=== PATIENT | male | born 1995 | race Caucasian/White ===

== ENCOUNTER → 2016-05-04 | Outpatient (CLI) | payer BC ==
[2016-05-04 09:39] LABS: BASO # 0.2 K/mm3 (0.0-0.2); BASO % 1.8 % (0.0-1.0); EOS # 0.1 K/mm3 (0.0-0.50); EOS % 0.7 % (0.0-3.0); LARGE UNSTAINED CELL # 0.2 K/mm3 (0.0-0.4); LARGE UNSTAINED CELL % 1.4 % (0.0-4.0); LYMPH # 1.5 K/mm3 (1.5-6.5); LYMPH % 10.9 % (24.0-44.0); MEAN CORPUSCULAR HGB CONC 34.9 g/dl (32.0-36.5); MEAN CORPUSCULAR VOLUME 82.9 fl (80.0-96.0); MONO # 0.8 K/mm3 (0.0-0.8); MONO % 6.3 % (0.0-5.0); NEUTROPHILS # 9.6 K/mm3 (1.8-7.7); NEUTROPHILS % 78.9 % (36.0-66.0); PLATELET COUNT, AUTOMATED 303 k/mm3 (150-450); RED CELL DISTRIBUTION WIDTH 12.8 % (11.5-14.5); WHITE BLOOD COUNT 12.1 K/mm3 (4.0-10.0)
[2016-05-04 10:12] LABS: ALBUMIN 4.5 GM/DL (3.2-5.2); ALBUMIN/GLOBULIN RATIO 1.41 (1.00-1.93); ALKALINE PHOSPHATASE 105 U/L (45-117); ALT/SGPT 48 U/L (12-78); ANION GAP 14 MEQ/L (8-16); AST/SGOT 22 U/L (15-37); BILIRUBIN,TOTAL 1.3 MG/DL (0.2-1.0); BLOOD UREA NITROGEN 16 MG/DL (7-18); CALCIUM LEVEL 9.6 MG/DL (8.5-10.1); CARBON DIOXIDE LEVEL 23 MEQ/L (21-32); CHLORIDE LEVEL 100 MEQ/L (98-107); CREATININE FOR GFR 1.08 MG/DL (0.70-1.30); GLOMERULAR FILTRATION RATE > 60.0 (>60); GLUCOSE, FASTING 107 MG/DL (70-105); POTASSIUM SERUM 3.5 MEQ/L (3.5-5.1); SODIUM LEVEL 137 MEQ/L (136-145); TOTAL PROTEIN 7.7 GM/DL (6.4-8.2)
== END ==
LOC: M WUC 08:47
PROVIDERS: ATTEND Physician Assistant
DX: K29.00 Acute gastritis without bleeding (principal)

== ENCOUNTER 2016-05-09 09:27 | Emergency (ER) | payer BC ==
[2016-05-09] MEDS ORDERED: KETOROLAC 30 MG/ML VIAL (J1885) As Ordered ONE (10:24)
[2016-05-09] MEDS ORDERED: ONDANSETRON 4MG/2ML VIAL (J2405) As Ordered ONE (10:24)
[2016-05-09 10:46] LABS: BASO # 0.1 K/mm3 (0.0-0.2); BASO % 0.7 % (0.0-1.0); EOS # 0.2 K/mm3 (0.0-0.50); EOS % 1.3 % (0.0-3.0); LARGE UNSTAINED CELL # 0.3 K/mm3 (0.0-0.4); LYMPH # 1.9 K/mm3 (1.5-6.5); MEAN CORPUSCULAR HEMOGLOBIN 29.9 pg (27.0-33.0); MEAN CORPUSCULAR HGB CONC 35.7 g/dl (32.0-36.5); MEAN CORPUSCULAR VOLUME 83.8 fl (80.0-96.0); MONO # 0.8 K/mm3 (0.0-0.8); MONO % 6.1 % (0.0-5.0); NEUTROPHILS # 9.6 K/mm3 (1.8-7.7); NEUTROPHILS % 74.9 % (36.0-66.0); PLATELET COUNT, AUTOMATED 333 k/mm3 (150-450); RED CELL DISTRIBUTION WIDTH 11.9 % (11.5-14.5); WHITE BLOOD COUNT 12.9 K/mm3 (4.0-10.0)
[2016-05-09 10:54] LABS: ALBUMIN 4.9 GM/DL (3.2-5.2); ALBUMIN/GLOBULIN RATIO 1.48 (1.00-1.93); ALKALINE PHOSPHATASE 105 U/L (45-117); ALT/SGPT 76 U/L (12-78); AMYLASE 58 U/L (25-115); ANION GAP 14 MEQ/L (8-16); AST/SGOT 25 U/L (15-37); BILIRUBIN,DIRECT 0.4 MG/DL (0.0-0.2); BILIRUBIN,TOTAL 1.6 MG/DL (0.2-1.0); BLOOD UREA NITROGEN 15 MG/DL (7-18); CALCIUM LEVEL 9.8 MG/DL (8.5-10.1); CARBON DIOXIDE LEVEL 26 MEQ/L (21-32); CHLORIDE LEVEL 97 MEQ/L (98-107); CREATININE FOR GFR 1.23 MG/DL (0.70-1.30); GLOMERULAR FILTRATION RATE > 60.0 (>60); GLUCOSE, FASTING 97 MG/DL (70-105); POTASSIUM SERUM 3.6 MEQ/L (3.5-5.1); SODIUM LEVEL 137 MEQ/L (136-145); TOTAL PROTEIN 8.2 GM/DL (6.4-8.2)
--- NOTE | 2016-05-09 11:04 | REP ---
CT abdomen and pelvis without IV or oral contrast: Renal stone protocol. Comparison study December 17, 2004 CT findings: Metal Template Maker radiographs show an unremarkable bowel gas pattern. The lung bases are clear. The liver shows minimal fatty infiltration but is homogeneous. Spleen is borderline in size measuring 13.9 cm. Previously 10.0 cm. No focal splenic lesion is seen. No adrenal lesion is observed. The gallbladder and the pancreas are unremarkable. No intrarenal calculus, mass or hydronephrosis is seen. A normal appendix is visible in the right mid abdomen. Small and large intestinal bowel loops are normal in caliber today. Normal caliber aorta is seen. No pelvic mass or adenopathy is observed. Seminal vesicles, prostate and urinary bladder are unremarkable. No abdominal wall defect is seen. Impression: Minimal fatty infiltration of the liver. Borderline spleen diameter 13.9 cm. Normal appendix seen. No urinary tract calculus or hydronephrosis seen. No acute intra-abdominal abnormality. Signed by Manuel Duarte MD 05/09/2016 12:33 P
[2016-05-09] MEDS ORDERED: CIPROFLOXACIN 500 MG TAB As Ordered ONE (11:39)
--- NOTE | 2016-05-09 11:53 | EDDOCDS ---
Nurse's Notes [facility] Name: Jesus Handley Age: 20 yrs Sex: Male : 1995 Arrival Date: 05/09/2016 Time: 09: Bed I7 Private MD: NO PRIMARY PHYSICIAN, . Diagnosis: Generalized abdominal pain;Nausea and vomiting;Urinary tract infection, site not specified;Fatty (change of) liver, not elsewhere classified;Splenomegaly, not elsewhere classified Presentation: 05/09 09:33 Presenting complaint: Patient states: james been dehydrated for a week. been vomiting all srm week. mid abd pain started after vomiting. Adult Sepsis Screening: The patient does not have new or worsening altered mentation. Patient's respiratory rate is less than 22. Systolic blood pressure is greater than 100. Patient has a qSOFA score of 0- Negative Sepsis Screen. Suicide/Homicide risk assessment- the patient denies having any suicidal and/or homicidal ideations and does not present with any other emotional, behavioral or mental health complaints. Status: Patient is not a printing services coordinator or dependent. Transition of care: patient was not received from another setting of care. 09:33 Acuity: JAZMÍN Level 3 srm 09:33 Method Of Arrival: Walkin/Carried/Asstd srm 09:35 Presenting complaint: Patient states: went to urgent care last or sun and given srm anti nausea pill and acid rotary adjuster. Triage Assessment: 09:35 General: Appears in no apparent distress, Behavior is appropriate for age, cooperative. srm Pain: Pain currently is 5 out of 10 on a pain scale. 09:35 HIV screening NA for this visit Offered previously. srm Historical: - Allergies: no known allergies; - Home Meds: 1. Prilosec Unknown Oral once daily (Last dose: 05/09/2016 06:00) 2. phenergan 25mg every 6 hours (Last dose: 05/09/2016 06:30) - PMHx: none; - PSHx: none; - Social history: Smoking status: Patient states was never smoker of tobacco. No barriers to communication noted, The patient speaks fluent Indonesian, Speaks appropriately for age. - Family history: Not pertinent. - : The pt / caregiver states he / she is not on anticoagulants. Home medication list is obtained from the patient. - Exposure Risk Screening:: None identified. Screenin:20 Screening information is obtained from the patient. Fall risk: No risks identified. mcp Assistance ADL's: requires no assistance with activities of daily living. Abuse/DV Screen: The patient / caregiver reports he/she is: not in a situation that causes fear, pain or injury. Nutritional screening: No deficits noted. Advance Directives: Currently, there is no health care proxy. There is no active DNR order. There is no Power of Wardrobe Custodian. home support is adequate. Assessment: 10:21 General: Appears uncomfortable, Behavior is cooperative. Pain: Location: abdomen Pain mcp currently is 6 out of 10 on a pain scale. Neurological: No deficits noted. Respiratory: Airway is patent Respiratory effort is even, unlabored. GI: Abdomen is non- distended Bowel sounds hypoactive in right upper quadrant, left upper quadrant, right lower quadrant and left lower quadrant Abd is soft X 4 quads. Derm: Skin is pink, warm & dry. 11:15 General: Appears in no apparent distress, Behavior is cooperative. Neurological: No mcp deficits noted. Respiratory: Airway is patent Respiratory effort is even, unlabored. Derm: Skin is pink, warm & dry. Vital Signs: 09:28 BP 133 / 98; Pulse 108; Resp 18; Temp 98.9(O); Pulse Ox 97% on R/A; Weight 99.79 kg el (R); Height 5 ft. 9 in. (175.26 cm) (R); Pain 7/10; 11:00 Pain 3/10; mcp 11:51 BP 148 / 90; Pulse 54; Resp 18; Temp 97.4(O); Pulse Ox 100% on R/A; Pain 2/10; mcp 09:28 Body Mass Index 32.49 (99.79 kg, 175.26 cm) [facility] Vitals: 09:28 Log In Time: May 09, 2016 at 09:26. elp 10:13 Strep Screen is obtained and tested: Negative, a GATSNEG culture is ordered in [facility] and sent. ED Course: 09:28 Patient visited by Zabrina Guallpa PCA. elp 09:28 NO PRIMARY PHYSICIAN, . is Private Physician. elp 09:28 Patient moved to Waiting elp 09:29 Patient visited by Zabrina Guallpa PCA. elp 09:29 Patient moved to Pre RCE elp 09:34 Triage Initiated srm 09:37 Patient moved to Triage 3 srm 09:51 [facility] ef1 09:51 Lester Avilez MD is Attending Physician. ef1 09:51 Patient visited by Margarita Hale PA-C. ef1 10:11 Patient moved to I7 / hs1 10:15 Inserted saline lock: 20 gauge in right antecubital area and blood collected. The mcp patient tolerated the procedure well. Labs drawn. (by ED staff). Sent per order to lab. Urine collected. Clean catch specimen. Urine specimen sent to lab. 10:20 Amylase Sent. mcp 10:20 Basic Metabolic Profile Sent. mcp 10:20 CBC with Diff Sent. mcp 10:20 Lipase Sent. mcp 10:20 Liver Profile Sent. mcp 10:20 Urinalysis Sent. mcp 10:20 Urine Culture Sent. mcp 10:20 GATS (NEGATIVE STREP SCREEN) Sent. mcp 10:28 Patient visited by Mirian Navarro RN. mcp 10:36 [facility] Payment Agreement was scanned into [employer] and attached to record. lg 11:26 Patient visited by Margarita Hale PA-C. ef1 11:33 [facility] is Referral Physician. ef1 11:35 Rene Guerrreo is Referral Physician. ef1 11:44 CT ABD & PELVIS: No Contrast Returned. EDMS 11:45 Referral Physician role handed off by Rene Guerrero ef1 11:46 Jayden Guerrero is Referral Physician. ef1 11:50 Discontinued lock intact, bleeding controlled, pressure dressing applied, No mcp redness/swelling at site. No procedures done that require assistance. 11:52 The patient / caregiver is instructed regarding the plan of care and ED course. Patient mcp has correct armband on for positive identification. Placed in gown. Call light in reach. Side rails up X 1. Administered Medications: 10:27 Drug: NS 0.9% 1000 ml [sodium chloride 0.9 % intravenous solution] Route: IV; Rate: mcp bolus; Site: right antecubital; 11:49 Follow up: IV Status: Completed infusion; IV Intake: 1000ml mcp 10:27 Drug: Ondansetron 4 mg [ondansetron HCl 2 mg/mL intravenous solution (2 mL)] Route: mcp IVP; Site: right antecubital; 10:28 Drug: ketorolac 30 mg [ketorolac 30 mg/mL (1 mL) injection solution (1 mL)] Route: IVP; mcp Site: right antecubital; 11:00 Follow up: Pain 06/16 Adult; Response: Pain is decreased [facility] 11:49 Drug: Ciprofloxacin 500 mg [ciprofloxacin 500 mg tablet (1 tabs)] Route: PO; mcp Intake: 11:49 IV: 1000.00ml; Total: 1000.00ml. mcp Order Results: Lab Order: Amylase; SPEC'M 05/09/16 10:18 Test: AMYLASE; Value: 58; Range: 25-115; Units: U/L; Status: F Lab Order: Basic Metabolic Profile; SPEC'M 05/09/16 10:18 Test: GLUCOSE, FASTING; Value: 97; Range: 70-105; Units: MG/DL; Status: F Test: BLOOD UREA NITROGEN; Value: 15; Range: 7-18; Units: MG/DL; Status: F Test: CREATININE FOR GFR; Value: 1.23; Range: 0.70-1.30; Units: MG/DL; Status: F Test: GLOMERULAR FILTRATION RATE; Value: > 60.0; Range: >60; Status: F Test: SODIUM LEVEL; Value: 137; Range: 136-145; Units: MEQ/L; Status: F Test: POTASSIUM SERUM; Value: 3.6; Range: 3.5-5.1; Units: MEQ/L; Status: F Test: CHLORIDE LEVEL; Value: 97; Range: 98-107; Abnormal: Below low normal; Units: MEQ/L; Status: F Test: CARBON DIOXIDE LEVEL; Value: 26; Range: 21-32; Units: MEQ/L; Status: F Test: ANION GAP; Value: 14; Range: 8-16; Units: MEQ/L; Status: F Test: CALCIUM LEVEL; Value: 9.8; Range: 8.5-10.1; Units: MG/DL; Status: F Test Note: ; Units are mL/min/1.73 m2 Chronic Kidney Disease Staging per NKF: Stage I & II GFR >=60 Normal to Mildly Decreased Stage III GFR 30-59 Moderately Decreased Stage IV GFR 15-29 Severely Decreased Stage V GFR <15 Very Little GFR Left ESRD GFR <15 on MONUMENT INSTALLER Lab Order: CBC with Diff; SPEC'M 05/09/16 10:18 Test: WHITE BLOOD COUNT; Value: 12.9; Range: 4.0-10.0; Abnormal: Above high normal; Units: K/mm3; Status: F Test: RED BLOOD COUNT; Value: 6.67; Range: 4.30-6.10; Abnormal: Above high normal; Units: M/mm3; Status: F Test: HEMOGLOBIN; Value: 20.0; Range: 14.0-18.0; Abnormal: Above high normal; Units: g/dl; Status: F Test: HEMATOCRIT; Value: 55.8; Range: 42.0-52.0; Abnormal: Above high normal; Units: %; Status: F Test: MEAN CORPUSCULAR VOLUME; Value: 83.8; Range: 80.0-96.0; Units: fl; Status: F Test: MEAN CORPUSCULAR HEMOGLOBIN; Value: 29.9; Range: 27.0-33.0; Units: pg; Status: F Test: MEAN CORPUSCULAR HGB CONC; Value: 35.7; Range: 32.0-36.5; Units: g/dl; Status: F Test: RED CELL DISTRIBUTION WIDTH; Value: 11.9; Range: 11.5-14.5; Units: %; Status: F Test: PLATELET COUNT, AUTOMATED; Value: 333; Range: 150-450; Units: k/mm3; Status: F Test: NEUTROPHILS %; Value: 74.9; Range: 36.0-66.0; Abnormal: Above high normal; Units: %; Status: F Test: LYMPH %; Value: 15.0; Range: 24.0-44.0; Abnormal: Below low normal; Units: %; Status: F Test: MONO %; Value: 6.1; Range: 0.0-5.0; Abnormal: Above high normal; Units: %; Status: F Test: EOS %; Value: 1.3; Range: 0.0-3.0; Units: %; Status: F Test: BASO %; Value: 0.7; Range: 0.0-1.0; Units: %; Status: F Test: LARGE UNSTAINED CELL %; Value: 2.0; Range: 0.0-4.0; Units: %; Status: F Test: NEUTROPHILS #; Value: 9.6; Range: 1.8-7.7; Abnormal: Above high normal; Units: K/mm3; Status: F Test: LYMPH #; Value: 1.9; Range: 1.5-6.5; Units: K/mm3; Status: F Test: MONO #; Value: 0.8; Range: 0.0-0.8; Units: K/mm3; Status: F Test: EOS #; Value: 0.2; Range: 0.0-0.50; Units: K/mm3; Status: F Test: BASO #; Value: 0.1; Range: 0.0-0.2; Units: K/mm3; Status: F Test: LARGE UNSTAINED CELL #; Value: 0.3; Range: 0.0-0.4; Units: K/mm3; Status: F Lab Order: Lipase; [facility]' 05/09/16 10:18 Test: LIPASE; Value: 140; Range: 73-393; Units: U/L; Status: F Lab Order: Liver Profile; [facility]' 05/09/16 10:18 Test: AST/SGOT; Value: 25; Range: 15-37; Units: U/L; Status: F Test: ALT/SGPT; Value: 76; Range: 12-78; Units: U/L; Status: F Test: ALKALINE PHOSPHATASE; Value: 105; Range: 45-117; Units: U/L; Status: F Test: BILIRUBIN,TOTAL; Value: 1.6; Range: 0.2-1.0; Abnormal: Above high normal; Units: MG/DL; Status: F Test: BILIRUBIN,DIRECT; Value: 0.4; Range: 0.0-0.2; Abnormal: Above high normal; Units: MG/DL; Status: F Test: TOTAL PROTEIN; Value: 8.2; Range: 6.4-8.2; Units: GM/DL; Status: F Test: ALBUMIN; Value: 4.9; Range: 3.2-5.2; Units: GM/DL; Status: F Test: ALBUMIN/GLOBULIN RATIO; Value: 1.48; Range: 1.00-1.93; Status: F Lab Order: Urinalysis; [facility]' 05/09/16 10:19 Test: APPEARANCE, URINE; Value: CLOUDY; Range: CLEAR; Abnormal: Above high normal; Status: F Test: COLOR, URINE; Value: TARIQ; Range: YELLOW; Status: F Test: PH,URINE; Value: 5.0; Range: 5.0-9.0; Units: UNITS; Status: F Test: SPECIFIC GRAVITY URINE AUTO; Value: 1.033; Range: 1.002-1.035; Status: F Test: PROTEIN, URINE AUTO; Value: 2+; Range: NEGATIVE; Abnormal: Above high normal; Units: mg/dL; Status: F Test: GLUCOSE, URINE (UA) AUTO; Value: NEGATIVE; Range: NEGATIVE; Units: mg/dL; Status: F Test: KETONE, URINE AUTO; Value: 1+; Range: NEGATIVE; Abnormal: Above high normal; Units: mg/dL; Status: F Test: UROBILINOGEN, URINE AUTO; Value: 4.0; Range: 0.0-2.0; Abnormal: Above high normal; Units: mg/dL; Status: F Test: BILIRUBIN, URINE AUTO; Value: 1+; Range: NEGATIVE; Abnormal: Above high normal; Status: F Test: NITRITE, URINE AUTO; Value: NEGATIVE; Range: NEGATIVE; Status: F Test: LEUKOCYTE ESTERASE, URINE AUTO; Value: NEGATIVE; Range: NEGATIVE; Status: F Test: BLOOD, URINE BLOOD; Value: NEGATIVE; Range: NEGATIVE; Status: F Test: WBC, URINE AUTO; Value: 17; Range: 0-3; Abnormal: Above high normal; Units: /HPF; Status: F Test: RBC, URINE AUTO; Value: 2; Range: 0-3; Units: /HPF; Status: F Test: BACTERIA, URINE AUTO; Value: 1+; Range: NEGATIVE; Abnormal: Above high normal; Status: F Test: SQUAMOUS EPITHELIAL CELL UR AU; Value: 0; Range: 0-6; Units: /HPF; Status: F Test: MUCUS, URINE; Value: LARGE; Range: NEGATIVE; Status: F Test: HYALINE CAST, URINE AUTO; Value: 20; Range: 0-1; Units: /LPF; Status: F Test: GRANULAR CAST, URINE AUTO; Value: 133; Range: NONE; Units: /LPF; Status: F Radiology Order: CT ABD & PELVIS: No Contrast Test: CT ABD & PELVIS: No Contrast REASON FOR EXAMINATION: Abdomen Pain; CT abdomen and pelvis without IV or oral contrast: Renal stone protocol.; ; Comparison study December 17, 2004; ; CT findings: Drug Abuse Social Worker radiographs show an unremarkable bowel gas pattern. The lung; bases are clear. The liver shows minimal fatty infiltration but is homogeneous.; Spleen is borderline in size measuring 13.9 cm. Previously 10.0 cm. No focal; splenic lesion is seen. No adrenal lesion is observed. The gallbladder and the; pancreas are unremarkable. No intrarenal calculus, mass or hydronephrosis is; seen. A normal appendix is visible in the right mid abdomen. Small and large; intestinal bowel loops are normal in caliber today. Normal caliber aorta is; seen. No pelvic mass or adenopathy is observed. Seminal vesicles, prostate and; urinary bladder are unremarkable. No abdominal wall defect is seen.; ; Impression:; ; Minimal fatty infiltration of the liver. Borderline spleen diameter 13.9 cm.; Normal appendix seen. No urinary tract calculus or hydronephrosis seen. No; acute intra-abdominal abnormality.; ; ; ; ; Unreviewed; Outcome: 11:33 Discharge ordered by Provider. ef1 11:51 Discharge Assessment: patient administered narcotics - no. The following High Risk [facility] Discharge criteria are identified: None. Discharged to home ambulatory. Condition: stable. Discharge instructions given to patient, Instructed on discharge instructions, follow up and referral plans. medication usage, no driving heavy equipment, diet, no drinking with medication, Demonstrated understanding of instructions, medications, Pt was receptive of discharge instructions/ teaching. Prescriptions given X 3, Work note provided to patient. CT Study completed. Property sent home with patient. 11:52 Patient left the ED. [facility] Signatures: Dispatcher [employer] EDMS Eliane Waterman, RN Mirian Ryan RN RN mcp Ganter, LoriLee, Efe Reg lg Margarita Hale, PA-C PA-C ef1 Uzma Koehler RN RN 1 Zabrina Guallpa, MIGUEL BRASS INSTRUMENT REPAIR TECHNICIAN elp MTDD
--- NOTE | 2016-05-09 11:53 | EDDOCDS ---
Physician Documentation [facility] Name: Jesus Handley Age: 20 yrs Sex: Male : 1995 Arrival Date: 05/09/2016 Time: 09:27 Bed I Private MD: NO PRIMARY PHYSICIAN, . Disposition: 05/09/16 11:33 Discharged to Home/Self Care. Impression: Generalized abdominal pain, Nausea and vomiting, Urinary tract infection, site not specified, Fatty (change of) liver, not elsewhere classified, Splenomegaly, not elsewhere classified. - Condition is Stable. - Discharge Instructions: Abdominal Pain, Adult, Nausea and Vomiting, [id number], Urinary Tract Infection, [id number], Enlarged Spleen. - Prescriptions for Cipro 500 mg Oral Tablet - take 1 tablet by ORAL route every 12 hours; 14 tablet. Percocet 5- 325 mg Oral Tablet - take 1 tablet by ORAL route every 6 hours As needed MDD: 4 tabs; 10 tablet. promethazine 25 mg Oral Tablet - take 1 tablet by ORAL route every 6 hours As needed; 12 tablet. - Medication Reconciliation, Local Pharmacy Hours, Referral List Call for Appointment, Work Release Form - 2 day form. - [facility] ; When: 1 - 2 days; Reason: Recheck today's complaints, Continuance of care. Follow up: Emergency Department; Reason: Worsening of conditions. Follow up: Rene Guerrero; When: Call to arrange an appointment; Reason: Further diagnostic work-up, Recheck today's complaints, Continuance of care. Follow up: Jayden Guerrero; When: Call to arrange an appointment; Reason: Further diagnostic work-up, Recheck today's complaints, Continuance of care. - Problem is new. - Symptoms have improved. Historical: - Allergies: no known allergies; - Home Meds: 1. Prilosec Unknown Oral once daily (Last dose: 05/09/2016 06:00) 2. phenergan 25mg every 6 hours (Last dose: 05/09/2016 06:30) - PMHx: none; - PSHx: none; - Social history: Smoking status: Patient states was never smoker of tobacco. No barriers to communication noted, The patient speaks fluent [place], Speaks appropriately for age. - Family history: Not pertinent. - : The pt / caregiver states he / she is not on anticoagulants. Home medication list is obtained from the patient. - Exposure Risk Screening:: None identified. Vital Signs: 05/09 09:28 BP 133 / 98; Pulse 108; Resp 18; Temp 98.9(O); Pulse Ox 97% on R/A; Weight 99.79 kg / elp 220 lbs (R); Height 5 ft. 9 in. (175.26 cm) (R); Pain 7/10; 11:00 Pain 3/10; mcp 11:51 BP 148 / 90; Pulse 54; Resp 18; Temp 97.4(O); Pulse Ox 100% on R/A; Pain 2/10; mcp 09:28 Body Mass Index 32.49 (99.79 kg, 175.26 cm) elp MDM: 10:04 NS 0.9% 1000 ml IV at bolus once ordered. ef1 10:04 Ondansetron 4 mg IVP once ordered. ef1 10:04 ketorolac 30 mg IVP once ordered. ef1 10:04 IV Saline Lock ordered. ef1 10:04 Undress patient appropriately for examination ordered. ef1 10:04 Strep Screen, Nursing ordered. ef1 10:06 Amylase Ordered. EDMS 10:06 Basic Metabolic Profile Ordered. EDMS 10:06 CBC with Diff Ordered. EDMS 10:06 Lipase Ordered. EDMS 10:06 Liver Profile Ordered. EDMS 10:06 Urinalysis Ordered. EDMS 10:06 Urine Culture Ordered. EDMS 10:06 CT ABD & PELVIS: No Contrast Ordered. EDMS 10:06 NOTHING BY MOUTH+DIET ordered. EDMS 10:14 GATS (NEGATIVE STREP SCREEN) Ordered. EDMS 10:16 Financial registration complete. lg 10:36 [facility] Payment Agreement was scanned into [employer] and attached to record. lg 11:26 Basic Metabolic Profile Reviewed. ef1 11:26 CBC with Diff Reviewed. ef1 11:26 Liver Profile Reviewed. ef1 11:26 Urinalysis Reviewed. ef1 11:26 Amylase Reviewed. ef1 11:26 Lipase Reviewed. ef1 11:30 Ciprofloxacin 500 mg PO once ordered. ef1 Administered Medications: 10:27 Drug: NS 0.9% 1000 ml [sodium chloride 0.9 % intravenous solution] Route: IV; Rate: mcp bolus; Site: right antecubital; 11:49 Follow up: IV Status: Completed infusion; IV Intake: 1000ml [facility] 10:27 Drug: Ondansetron 4 mg [ondansetron HCl 2 mg/mL intravenous solution (2 mL)] Route: mcp IVP; Site: right antecubital; 10:28 Drug: ketorolac 30 mg [ketorolac 30 mg/mL (1 mL) injection solution (1 mL)] Route: IVP; [facility] Site: right antecubital; 11:00 Follow up: Pain 3/10 Adult; Response: Pain is decreased [facility] 11:49 Drug: Ciprofloxacin 500 mg [ciprofloxacin 500 mg tablet (1 tabs)] Route: PO; [facility] Signatures: Dispatcher [employer] EDEliane Hamilton RN RN [facility] Mirian Navarro RN RN mcp Ganter, LoriLee, Efe Wilks lg Margarita Hale, PA-C PA-C ef1 The chart was reviewed and I authenticate all verbal orders and agree with the evaluation and treatment provided.Attachments: 10:36 [facility] Payment Agreement lg MTDD
--- NOTE | 2016-05-11 12:53 | EDDOCDS ---
Physician Documentation [facility] Name: Jesus Handley Age: 20 yrs Sex: Male : 1995 Arrival Date: 05/09/2016 Time: 09:27 Bed I Private MD: NO PRIMARY PHYSICIAN, . Disposition: 05/09/16 11:33 Discharged to Home/Self Care. Impression: Generalized abdominal pain, Nausea and vomiting, Urinary tract infection, site not specified, Fatty (change of) liver, not elsewhere classified, Splenomegaly, not elsewhere classified. - Condition is Stable. - Discharge Instructions: Abdominal Pain, Adult, Nausea and Vomiting, Oomi-nv-Lkow, Urinary Tract Infection, Owra-ls-Pykw, Enlarged Spleen. - Prescriptions for Cipro 500 mg Oral Tablet - take 1 tablet by ORAL route every 12 hours; 14 tablet. Percocet 5- 325 mg Oral Tablet - take 1 tablet by ORAL route every 6 hours As needed MDD: 4 tabs; 10 tablet. promethazine 25 mg Oral Tablet - take 1 tablet by ORAL route every 6 hours As needed; 12 tablet. - Medication Reconciliation, Local Pharmacy Hours, Referral List Call for Appointment, Work Release Form - 2 day form. - [facility] ; When: 1 - 2 days; Reason: Recheck today's complaints, Continuance of care. Follow up: Emergency Department; Reason: Worsening of conditions. Follow up: Rene Guerrero; When: Call to arrange an appointment; Reason: Further diagnostic work-up, Recheck today's complaints, Continuance of care. Follow up: Jayden Guerrero; When: Call to arrange an appointment; Reason: Further diagnostic work-up, Recheck today's complaints, Continuance of care. - Problem is new. - Symptoms have improved. Historical: - Allergies: no known allergies; - Home Meds: 1. Prilosec Unknown Oral once daily (Last dose: 05/09/2016 06:00) 2. phenergan 25mg every 6 hours (Last dose: 05/09/2016 06:30) - PMHx: none; - PSHx: none; - Social history: Smoking status: Patient states was never smoker of tobacco. No barriers to communication noted, The patient speaks fluent Andorran, Speaks appropriately for age. - Family history: Not pertinent. - : The pt / caregiver states he / she is not on anticoagulants. Home medication list is obtained from the patient. - Exposure Risk Screening:: None identified. Vital Signs: 05/09 09:28 BP 133 / 98; Pulse 108; Resp 18; Temp 98.9(O); Pulse Ox 97% on R/A; Weight 99.79 kg / elp 220 lbs (R); Height 5 ft. 9 in. (175.26 cm) (R); Pain 7/10; 11:00 Pain 3/10; mcp 11:51 BP 148 / 90; Pulse 54; Resp 18; Temp 97.4(O); Pulse Ox 100% on R/A; Pain 2/10; mcp 09:28 Body Mass Index 32.49 (99.79 kg, 175.26 cm) elp MDM: 10:04 NS 0.9% 1000 ml IV at bolus once ordered. ef1 10:04 Ondansetron 4 mg IVP once ordered. ef1 10:04 ketorolac 30 mg IVP once ordered. ef1 10:04 IV Saline Lock ordered. ef1 10:04 Undress patient appropriately for examination ordered. ef1 10:04 Strep Screen, Nursing ordered. ef1 10:06 Amylase Ordered. EDMS 10:06 Basic Metabolic Profile Ordered. EDMS 10:06 CBC with Diff Ordered. EDMS 10:06 Lipase Ordered. EDMS 10:06 Liver Profile Ordered. EDMS 10:06 Urinalysis Ordered. EDMS 10:06 Urine Culture Ordered. EDMS 10:06 CT ABD & PELVIS: No Contrast Ordered. EDMS 10:06 NOTHING BY MOUTH+DIET ordered. EDMS 10:14 GATS (NEGATIVE STREP SCREEN) Ordered. EDMS 10:16 Financial registration complete. lg 10:36 [facility] [place] Payment Agreement was scanned into [employer]ne[employer] and attached to record. lg 11:26 Basic Metabolic Profile Reviewed. ef1 11:26 CBC with Diff Reviewed. ef1 11:26 Liver Profile Reviewed. ef1 11:26 Urinalysis Reviewed. ef1 11:26 Amylase Reviewed. ef1 11:26 Lipase Reviewed. ef1 11:30 Ciprofloxacin 500 mg PO once ordered. ef1 14:38 T-Sheet-- Draft Copy was scanned into [employer] and attached to record. gb Administered Medications: 10:27 Drug: NS 0.9% 1000 ml [sodium chloride 0.9 % intravenous solution] Route: IV; Rate: mcp bolus; Site: right antecubital; 11:49 Follow up: IV Status: Completed infusion; IV Intake: 1000ml [facility] 10:27 Drug: Ondansetron 4 mg [ondansetron HCl 2 mg/mL intravenous solution (2 mL)] Route: mcp IVP; Site: right antecubital; 10:28 Drug: ketorolac 30 mg [ketorolac 30 mg/mL (1 mL) injection solution (1 mL)] Route: IVP; [facility] Site: right antecubital; 11:00 Follow up: Pain 06/16 Adult; Response: Pain is decreased [facility] 11:49 Drug: Ciprofloxacin 500 mg [ciprofloxacin 500 mg tablet (1 tabs)] Route: PO; [facility] Signatures: Dispatcher [employer] Eliane Stoner, RN JOAQUÍN [facility] Mirian Navarro RN RN [facility] Princess Canseco, Reg Reg gb Alan Friedman, Reg Reg lg Margarita Hale, ZOILAC PAMyron ef1 The chart was reviewed and I authenticate all verbal orders and agree with the evaluation and treatment provided.Attachments: 10:36 [facility] Payment Agreement lg 14:38 T-Sheet-- Draft Copy Chart Complete MTDD
--- NOTE | 2016-05-11 12:53 | EDDOCDS ---
Nurse's Notes [facility] Name: Jesus Handley Age: 20 yrs Sex: Male : 1995 Arrival Date: 05/09/2016 Time: 09: Bed I7 Private MD: NO PRIMARY PHYSICIAN, . Diagnosis: Generalized abdominal pain;Nausea and vomiting;Urinary tract infection, site not specified;Fatty (change of) liver, not elsewhere classified;Splenomegaly, not elsewhere classified Presentation: 05/09 09:33 Presenting complaint: Patient states: james been dehydrated for a week. been vomiting all srm week. mid abd pain started after vomiting. Adult Sepsis Screening: The patient does not have new or worsening altered mentation. Patient's respiratory rate is less than 22. Systolic blood pressure is greater than 100. Patient has a qSOFA score of 0- Negative Sepsis Screen. Suicide/Homicide risk assessment- the patient denies having any suicidal and/or homicidal ideations and does not present with any other emotional, behavioral or mental health complaints. Status: Patient is not a human services supervisor or dependent. Transition of care: patient was not received from another setting of care. 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 Triage Assessment: 09:35 General: Appears in no apparent distress, Behavior is appropriate for age, cooperative. srm Pain: Pain currently is 5 out of 10 on a pain scale. 09:35 HIV screening NA for this visit Offered previously. srm Historical: - Allergies: no known allergies; - Home Meds: 1. Prilosec Unknown Oral once daily (Last dose: 05/09/2016 06:00) 2. phenergan 25mg every 6 hours (Last dose: 05/09/2016 06:30) - PMHx: none; - PSHx: none; - Social history: Smoking status: Patient states was never smoker of tobacco. No barriers to communication noted, The patient speaks fluent Kazakh, Speaks appropriately for age. - Family history: Not pertinent. - : The pt / caregiver states he / she is not on anticoagulants. Home medication list is obtained from the patient. - Exposure Risk Screening:: None identified. Screenin:20 Screening information is obtained from the patient. Fall risk: No risks identified. mcp Assistance ADL's: requires no assistance with activities of daily living. Abuse/DV Screen: The patient / caregiver reports he/she is: not in a situation that causes fear, pain or injury. Nutritional screening: No deficits noted. Advance Directives: Currently, there is no health care proxy. There is no active DNR order. There is no Power of Acute Care Assistant. home support is adequate. Assessment: 10:21 General: Appears uncomfortable, Behavior is cooperative. Pain: Location: abdomen Pain mcp currently is 6 out of 10 on a pain scale. Neurological: No deficits noted. Respiratory: Airway is patent Respiratory effort is even, unlabored. GI: Abdomen is non- distended Bowel sounds hypoactive in right upper quadrant, left upper quadrant, right lower quadrant and left lower quadrant Abd is soft X 4 quads. Derm: Skin is pink, warm & dry. 11:15 General: Appears in no apparent distress, Behavior is cooperative. Neurological: No mcp deficits noted. Respiratory: Airway is patent Respiratory effort is even, unlabored. Derm: Skin is pink, warm & dry. Vital Signs: 09:28 BP 133 / 98; Pulse 108; Resp 18; Temp 98.9(O); Pulse Ox 97% on R/A; Weight 99.79 kg el (R); Height 5 ft. 9 in. (175.26 cm) (R); Pain 7/10; 11:00 Pain 3/10; mcp 11:51 BP 148 / 90; Pulse 54; Resp 18; Temp 97.4(O); Pulse Ox 100% on R/A; Pain 2/10; mcp 09:28 Body Mass Index 32.49 (99.79 kg, 175.26 cm) [facility] Vitals: 09:28 Log In Time: May 09, 2016 at 09:26. elp 10:13 Strep Screen is obtained and tested: Negative, a GATSNEG culture is ordered in [facility] and sent. ED Course: 09:28 Patient visited by Zabrina Guallpa PCA. elp 09:28 NO PRIMARY PHYSICIAN, . is Private Physician. elp 09:28 Patient moved to Waiting elp 09:29 Patient visited by Zabrina Guallpa PCA. elp 09:29 Patient moved to Pre RCE elp 09:34 Triage Initiated srm 09:37 Patient moved to Triage 3 srm 09:51 [facility] Hale [facility]. ef1 09:51 Lester Avilez MD is Attending Physician. ef1 09:51 Patient visited by Margarita Hale PA-C. ef1 10:11 Patient moved to I7 / hs1 10:15 Inserted saline lock: 20 gauge in right antecubital area and blood collected. The mcp patient tolerated the procedure well. Labs drawn. (by ED staff). Sent per order to lab. Urine collected. Clean catch specimen. Urine specimen sent to lab. 10:20 Amylase Sent. mcp 10:20 Basic Metabolic Profile Sent. mcp 10:20 CBC with Diff Sent. mcp 10:20 Lipase Sent. mcp 10:20 Liver Profile Sent. mcp 10:20 Urinalysis Sent. mcp 10:20 Urine Culture Sent. mcp 10:20 GATS (NEGATIVE STREP SCREEN) Sent. mcp 10:28 Patient visited by Mirian Navarro RN. mcp 10:36 [facility] Payment Agreement was scanned into [employer] and attached to record. lg 11:26 Patient visited by Margarita Hale PA-C. ef1 11:33 [facility] is Referral Physician. ef1 11:35 Rene Guerrero is Referral Physician. ef1 11:44 CT ABD & PELVIS: No Contrast Returned. EDMS 11:45 Referral Physician role handed off by Rene Guerrero ef1 11:46 Jayden Guerrero is Referral Physician. ef1 11:50 Discontinued lock intact, bleeding controlled, pressure dressing applied, No mcp redness/swelling at site. No procedures done that require assistance. 11:52 The patient / caregiver is instructed regarding the plan of care and ED course. Patient mcp has correct armband on for positive identification. Placed in gown. Call light in reach. Side rails up X 1. 14:38 T-Sheet-- Draft Copy was scanned into [employer] and attached to record. gb Administered Medications: 10:27 Drug: NS 0.9% 1000 ml [sodium chloride 0.9 % intravenous solution] Route: IV; Rate: mcp bolus; Site: right antecubital; 11:49 Follow up: IV Status: Completed infusion; IV Intake: 1000ml mcp 10:27 Drug: Ondansetron 4 mg [ondansetron HCl 2 mg/mL intravenous solution (2 mL)] Route: mcp IVP; Site: right antecubital; 10:28 Drug: ketorolac 30 mg [ketorolac 30 mg/mL (1 mL) injection solution (1 mL)] Route: IVP; mcp Site: right antecubital; 11:00 Follow up: Pain 3/10 Adult; Response: Pain is decreased [facility] 11:49 Drug: Ciprofloxacin 500 mg [ciprofloxacin 500 mg tablet (1 tabs)] Route: PO; mcp Intake: 11:49 IV: 1000.00ml; Total: 1000.00ml. mcp Order Results: Lab Order: Amylase; SPEC'M 05/09/16 10:18 Test: AMYLASE; Value: 58; Range: 25-115; Units: U/L; Status: F Lab Order: Basic Metabolic Profile; SPEC'M 05/09/16 10:18 Test: GLUCOSE, FASTING; Value: 97; Range: 70-105; Units: MG/DL; Status: F Test: BLOOD UREA NITROGEN; Value: 15; Range: 7-18; Units: MG/DL; Status: F Test: CREATININE FOR GFR; Value: 1.23; Range: 0.70-1.30; Units: MG/DL; Status: F Test: GLOMERULAR FILTRATION RATE; Value: > 60.0; Range: >60; Status: F Test: SODIUM LEVEL; Value: 137; Range: 136-145; Units: MEQ/L; Status: F Test: POTASSIUM SERUM; Value: 3.6; Range: 3.5-5.1; Units: MEQ/L; Status: F Test: CHLORIDE LEVEL; Value: 97; Range: 98-107; Abnormal: Below low normal; Units: MEQ/L; Status: F Test: CARBON DIOXIDE LEVEL; Value: 26; Range: 21-32; Units: MEQ/L; Status: F Test: ANION GAP; Value: 14; Range: 8-16; Units: MEQ/L; Status: F Test: CALCIUM LEVEL; Value: 9.8; Range: 8.5-10.1; Units: MG/DL; Status: F Test Note: ; Units are mL/min/1.73 m2 Chronic Kidney Disease Staging per NKF: Stage I & II GFR >=60 Normal to Mildly Decreased Stage III GFR 30-59 Moderately Decreased Stage IV GFR 15-29 Severely Decreased Stage V GFR <15 Very Little GFR Left ESRD GFR <15 on GYM SUPERVISOR Lab Order: CBC with Diff; SPEC'M 05/09/16 10:18 Test: WHITE BLOOD COUNT; Value: 12.9; Range: 4.0-10.0; Abnormal: Above high normal; Units: K/mm3; Status: F Test: RED BLOOD COUNT; Value: 6.67; Range: 4.30-6.10; Abnormal: Above high normal; Units: M/mm3; Status: F Test: HEMOGLOBIN; Value: 20.0; Range: 14.0-18.0; Abnormal: Above high normal; Units: g/dl; Status: F Test: HEMATOCRIT; Value: 55.8; Range: 42.0-52.0; Abnormal: Above high normal; Units: %; Status: F Test: MEAN CORPUSCULAR VOLUME; Value: 83.8; Range: 80.0-96.0; Units: fl; Status: F Test: MEAN CORPUSCULAR HEMOGLOBIN; Value: 29.9; Range: 27.0-33.0; Units: pg; Status: F Test: MEAN CORPUSCULAR HGB CONC; Value: 35.7; Range: 32.0-36.5; Units: g/dl; Status: F Test: RED CELL DISTRIBUTION WIDTH; Value: 11.9; Range: 11.5-14.5; Units: %; Status: F Test: PLATELET COUNT, AUTOMATED; Value: 333; Range: 150-450; Units: k/mm3; Status: F Test: NEUTROPHILS %; Value: 74.9; Range: 36.0-66.0; Abnormal: Above high normal; Units: %; Status: F Test: LYMPH %; Value: 15.0; Range: 24.0-44.0; Abnormal: Below low normal; Units: %; Status: F Test: MONO %; Value: 6.1; Range: 0.0-5.0; Abnormal: Above high normal; Units: %; Status: F Test: EOS %; Value: 1.3; Range: 0.0-3.0; Units: %; Status: F Test: BASO %; Value: 0.7; Range: 0.0-1.0; Units: %; Status: F Test: LARGE UNSTAINED CELL %; Value: 2.0; Range: 0.0-4.0; Units: %; Status: F Test: NEUTROPHILS #; Value: 9.6; Range: 1.8-7.7; Abnormal: Above high normal; Units: K/mm3; Status: F Test: LYMPH #; Value: 1.9; Range: 1.5-6.5; Units: K/mm3; Status: F Test: MONO #; Value: 0.8; Range: 0.0-0.8; Units: K/mm3; Status: F Test: EOS #; Value: 0.2; Range: 0.0-0.50; Units: K/mm3; Status: F Test: BASO #; Value: 0.1; Range: 0.0-0.2; Units: K/mm3; Status: F Test: LARGE UNSTAINED CELL #; Value: 0.3; Range: 0.0-0.4; Units: K/mm3; Status: F Lab Order: Lipase; SPEC'M 05/09/16 10:18 Test: LIPASE; Value: 140; Range: 73-393; Units: U/L; Status: F Lab Order: Liver Profile; SPEC'M 05/09/16 10:18 Test: AST/SGOT; Value: 25; Range: 15-37; Units: U/L; Status: F Test: ALT/SGPT; Value: 76; Range: 12-78; Units: U/L; Status: F Test: ALKALINE PHOSPHATASE; Value: 105; Range: 45-117; Units: U/L; Status: F Test: BILIRUBIN,TOTAL; Value: 1.6; Range: 0.2-1.0; Abnormal: Above high normal; Units: MG/DL; Status: F Test: BILIRUBIN,DIRECT; Value: 0.4; Range: 0.0-0.2; Abnormal: Above high normal; Units: MG/DL; Status: F Test: TOTAL PROTEIN; Value: 8.2; Range: 6.4-8.2; Units: GM/DL; Status: F Test: ALBUMIN; Value: 4.9; Range: 3.2-5.2; Units: GM/DL; Status: F Test: ALBUMIN/GLOBULIN RATIO; Value: 1.48; Range: 1.00-1.93; Status: F Lab Order: Urinalysis; SPEC'M 05/09/16 10:19 Test: APPEARANCE, URINE; Value: CLOUDY; Range: CLEAR; Abnormal: Above high normal; Status: F Test: COLOR, URINE; Value: TARIQ; Range: YELLOW; Status: F Test: PH,URINE; Value: 5.0; Range: 5.0-9.0; Units: UNITS; Status: F Test: SPECIFIC GRAVITY URINE AUTO; Value: 1.033; Range: 1.002-1.035; Status: F Test: PROTEIN, URINE AUTO; Value: 2+; Range: NEGATIVE; Abnormal: Above high normal; Units: mg/dL; Status: F Test: GLUCOSE, URINE (UA) AUTO; Value: NEGATIVE; Range: NEGATIVE; Units: mg/dL; Status: F Test: KETONE, URINE AUTO; Value: 1+; Range: NEGATIVE; Abnormal: Above high normal; Units: mg/dL; Status: F Test: UROBILINOGEN, URINE AUTO; Value: 4.0; Range: 0.0-2.0; Abnormal: Above high normal; Units: mg/dL; Status: F Test: BILIRUBIN, URINE AUTO; Value: 1+; Range: NEGATIVE; Abnormal: Above high normal; Status: F Test: NITRITE, URINE AUTO; Value: NEGATIVE; Range: NEGATIVE; Status: F Test: LEUKOCYTE ESTERASE, URINE AUTO; Value: NEGATIVE; Range: NEGATIVE; Status: F Test: BLOOD, URINE BLOOD; Value: NEGATIVE; Range: NEGATIVE; Status: F Test: WBC, URINE AUTO; Value: 17; Range: 0-3; Abnormal: Above high normal; Units: /HPF; Status: F Test: RBC, URINE AUTO; Value: 2; Range: 0-3; Units: /HPF; Status: F Test: BACTERIA, URINE AUTO; Value: 1+; Range: NEGATIVE; Abnormal: Above high normal; Status: F Test: SQUAMOUS EPITHELIAL CELL UR AU; Value: 0; Range: 0-6; Units: /HPF; Status: F Test: MUCUS, URINE; Value: LARGE; Range: NEGATIVE; Status: F Test: HYALINE CAST, URINE AUTO; Value: 20; Range: 0-1; Units: /LPF; Status: F Test: GRANULAR CAST, URINE AUTO; Value: 133; Range: NONE; Units: /LPF; Status: F Lab Order: Urine Culture; SPEC'M 05/09/16 10:19 Test: URINE CULTURE; Value: <EXTERNAL COMMENT eCWMed> FULL REPORT IN LAB NOTES (eCW and Medent).; Status: F Test: URINE CULTURE; Value: URINE CULTURE RESULT NO GROWTH; Status: F Lab Order: GATS (NEGATIVE STREP SCREEN); SPEC'M 05/09/16 10:11 Test: GATS CULTURE (NEG STREP SCR); Value: GATS RESULT NEGATIVE FOR STREP PYOGENES (GROUP A); Status: F Test: GATS CULTURE (NEG STREP SCR); Value: <EXTERNAL COMMENT eCWMed> FULL REPORT IN LAB NOTES (eCW and Medent).; Status: F Radiology Order: CT ABD & PELVIS: No Contrast Test: CT ABD & PELVIS: No Contrast REASON FOR EXAMINATION: Abdomen Pain; CT abdomen and pelvis without IV or oral contrast: Renal stone protocol.; ; Comparison study December 17, 2004; ; CT findings: Rim Technician radiographs show an unremarkable bowel gas pattern. The lung; bases are clear. The liver shows minimal fatty infiltration but is homogeneous.; Spleen is borderline in size measuring 13.9 cm. Previously 10.0 cm. No focal; splenic lesion is seen. No adrenal lesion is observed. The gallbladder and the; pancreas are unremarkable. No intrarenal calculus, mass or hydronephrosis is; seen. A normal appendix is visible in the right mid abdomen. Small and large; intestinal bowel loops are normal in caliber today. Normal caliber aorta is; seen. No pelvic mass or adenopathy is observed. Seminal vesicles, prostate and; urinary bladder are unremarkable. No abdominal wall defect is seen.; ; Impression:; ; Minimal fatty infiltration of the liver. Borderline spleen diameter 13.9 cm.; Normal appendix seen. No urinary tract calculus or hydronephrosis seen. No; acute intra-abdominal abnormality.; ; ; Signed by; Manuel Duarte MD 05/09/2016 12:33 P; Outcome: 11:33 Discharge ordered by Provider. ef1 11:51 Discharge Assessment: patient administered narcotics - no. The following High Risk mcp Discharge criteria are identified: None. Discharged to home ambulatory. Condition: stable. Discharge instructions given to patient, Instructed on discharge instructions, follow up and referral plans. medication usage, no driving heavy equipment, diet, no drinking with medication, Demonstrated understanding of instructions, medications, Pt was receptive of discharge instructions/ teaching. Prescriptions given X 3, Work note provided to patient. CT Study completed. Property sent home with patient. 11:52 Patient left the ED. [facility] Signatures: Dispatcher Med[employer] EDMS Eliane Waterman, RN RN Mirian Jones RN RN [facility] Princess Canseco, Reg Reg gb Alan Friedman, Reg Reg lg Margarita Hale, PA-C PA-C ef1 Uzma Koehler RN RN hs1 Zabrina Guallpa, MIGUEL MEDICAL IMAGING TECHNOLOGIST elp Chart Complete MTDD
--- NOTE | 2016-05-11 12:53 | EDDOCDS ---
Physician Documentation [facility] Name: Jesus Handley Age: 20 yrs Sex: Male : 1995 Arrival Date: 05/09/2016 Time: 09:27 Bed I Private MD: NO PRIMARY PHYSICIAN, . Disposition: 05/09/16 11:33 Discharged to Home/Self Care. Impression: Generalized abdominal pain, Nausea and vomiting, Urinary tract infection, site not specified, Fatty (change of) liver, not elsewhere classified, Splenomegaly, not elsewhere classified. - Condition is Stable. - Discharge Instructions: Abdominal Pain, Adult, Nausea and Vomiting, [id number], Urinary Tract Infection, [id number], Enlarged Spleen. - Prescriptions for Cipro 500 mg Oral Tablet - take 1 tablet by ORAL route every 12 hours; 14 tablet. Percocet 5- 325 mg Oral Tablet - take 1 tablet by ORAL route every 6 hours As needed MDD: 4 tabs; 10 tablet. promethazine 25 mg Oral Tablet - take 1 tablet by ORAL route every 6 hours As needed; 12 tablet. - Medication Reconciliation, Local Pharmacy Hours, Referral List Call for Appointment, Work Release Form - 2 day form. - [facility] ; When: 1 - 2 days; Reason: Recheck today's complaints, Continuance of care. Follow up: Emergency Department; Reason: Worsening of conditions. Follow up: Rene Guerrero; When: Call to arrange an appointment; Reason: Further diagnostic work-up, Recheck today's complaints, Continuance of care. Follow up: Jayden Guerrero; When: Call to arrange an appointment; Reason: Further diagnostic work-up, Recheck today's complaints, Continuance of care. - Problem is new. - Symptoms have improved. Historical: - Allergies: no known allergies; - Home Meds: 1. Prilosec Unknown Oral once daily (Last dose: 05/09/2016 06:00) 2. phenergan 25mg every 6 hours (Last dose: 05/09/2016 06:30) - PMHx: none; - PSHx: none; - Social history: Smoking status: Patient states was never smoker of tobacco. No barriers to communication noted, The patient speaks fluent [place], Speaks appropriately for age. - Family history: Not pertinent. - : The pt / caregiver states he / she is not on anticoagulants. Home medication list is obtained from the patient. - Exposure Risk Screening:: None identified. Vital Signs: 05/09 09:28 BP 133 / 98; Pulse 108; Resp 18; Temp 98.9(O); Pulse Ox 97% on R/A; Weight 99.79 kg / elp 220 lbs (R); Height 5 ft. 9 in. (175.26 cm) (R); Pain 7/10; 11:00 Pain 3/10; mcp 11:51 BP 148 / 90; Pulse 54; Resp 18; Temp 97.4(O); Pulse Ox 100% on R/A; Pain 2/10; mcp 09:28 Body Mass Index 32.49 (99.79 kg, 175.26 cm) elp MDM: 10:04 NS 0.9% 1000 ml IV at bolus once ordered. ef1 10:04 Ondansetron 4 mg IVP once ordered. ef1 10:04 ketorolac 30 mg IVP once ordered. ef1 10:04 IV Saline Lock ordered. ef1 10:04 Undress patient appropriately for examination ordered. ef1 10:04 Strep Screen, Nursing ordered. ef1 10:06 Amylase Ordered. EDMS 10:06 Basic Metabolic Profile Ordered. EDMS 10:06 CBC with Diff Ordered. EDMS 10:06 Lipase Ordered. EDMS 10:06 Liver Profile Ordered. EDMS 10:06 Urinalysis Ordered. EDMS 10:06 Urine Culture Ordered. EDMS 10:06 CT ABD & PELVIS: No Contrast Ordered. EDMS 10:06 NOTHING BY MOUTH+DIET ordered. EDMS 10:14 GATS (NEGATIVE STREP SCREEN) Ordered. EDMS 10:16 Financial registration complete. lg 10:36 [facility] [place] was scanned into [employer] and attached to record. lg 11:26 Basic Metabolic Profile Reviewed. ef1 11:26 CBC with Diff Reviewed. ef1 11:26 Liver Profile Reviewed. ef1 11:26 Urinalysis Reviewed. ef1 11:26 Amylase Reviewed. ef1 11:26 Lipase Reviewed. ef1 11:30 Ciprofloxacin 500 mg PO once ordered. ef1 14:38 T-Sheet-- Draft Copy was scanned into [employer] and attached to record. gb Administered Medications: 10:27 Drug: NS 0.9% 1000 ml [sodium chloride 0.9 % intravenous solution] Route: IV; Rate: mcp bolus; Site: right antecubital; 11:49 Follow up: IV Status: Completed infusion; IV Intake: 1000ml [facility] 10:27 Drug: Ondansetron 4 mg [ondansetron HCl 2 mg/mL intravenous solution (2 mL)] Route: mcp IVP; Site: right antecubital; 10:28 Drug: ketorolac 30 mg [ketorolac 30 mg/mL (1 mL) injection solution (1 mL)] Route: IVP; [facility] Site: right antecubital; 11:00 Follow up: Pain 06/16 Adult; Response: Pain is decreased [facility] 11:49 Drug: Ciprofloxacin 500 mg [ciprofloxacin 500 mg tablet (1 tabs)] Route: PO; [facility] Signatures: Dispatcher [employer] Eliane Stoner, RN JOAQUÍN [facility] Mirian Navarro RN RN [facility] Princess Canseco, Reg Reg gb Alan Friedman, Reg Reg lg Margarita Hale, ZOILAC PAMyron ef1 The chart was reviewed and I authenticate all verbal orders and agree with the evaluation and treatment provided.Attachments: 10:36 [facility] Payment Agreement lg 14:38 T-Sheet-- Draft Copy Chart Complete MTDD
== END 2016-05-09 11:52 | disposition home or self-care (01) ==
LOC: M ED 09:27
DX: R10.84 Generalized abdominal pain (principal); R11.2 Nausea with vomiting, unspecified; K76.0 Fatty (change of) liver, not elsewhere classified; R16.1 Splenomegaly, not elsewhere classified; N39.0 Urinary tract infection, site not specified; Z79.899 Other long term (current) drug therapy
CPT/HCPCS: 36415; 74176; 80048; 80076; 81001; 82150; 83690; 85025; 87086; 87880; 96361; 96374; 96375; 99284; J1885; J2405

== ENCOUNTER 2016-08-11 17:11 | Emergency (ER) | payer BC ==
[~2016-08-11] VITALS: Ht 175.3 cm; Wt 97.5 kg
[2016-08-11] MEDS ORDERED: PROM50TA2 PO (17:21)
[2016-08-11] MEDS ORDERED: PEPT262T2 PO (17:21)
[2016-08-11] MEDS ORDERED: GAS-80CH PO (17:21)
[2016-08-11] MEDS ORDERED: TYLE325C PO (17:21)
[2016-08-11] MEDS ORDERED: ONDANSETRON 4MG/2ML VIAL (J2405) IV ONE (17:45)
[2016-08-11] MEDS ORDERED: KETOROLAC 30 MG/ML VIAL (J1885) IV ONE (17:45)
[2016-08-11] MEDS ORDERED: NS 1,000 ML IV ONE (17:45)
[2016-08-11] MEDS ORDERED: diphenhydrAMINE INJ 50MG/ML VIAL (J1200) IV ONE (17:45)
[2016-08-11 17:52] LABS: BASO % 0.3 % (0.0-1.0); EOS # 0.2 K/mm3 (0.0-0.50); EOS % 1.7 % (0.0-3.0); LARGE UNSTAINED CELL # 0.1 K/mm3 (0.0-0.4); LARGE UNSTAINED CELL % 1.1 % (0.0-4.0); LYMPH # 1.3 K/mm3 (1.5-6.5); LYMPH % 10.6 % (24.0-44.0); MEAN CORPUSCULAR HGB CONC 35.2 g/dl (32.0-36.5); MEAN CORPUSCULAR VOLUME 88.1 fl (80.0-96.0); MONO # 0.6 K/mm3 (0.0-0.8); MONO % 4.6 % (0.0-5.0); NEUTROPHILS # 10.4 K/mm3 (1.8-7.7); NEUTROPHILS % 81.7 % (36.0-66.0); PLATELET COUNT, AUTOMATED 317 k/mm3 (150-450); RED CELL DISTRIBUTION WIDTH 12.4 % (11.5-14.5); WHITE BLOOD COUNT 12.7 K/mm3 (4.0-10.0)
[2016-08-11 18:25] LABS: ALBUMIN 4.4 GM/DL (3.2-5.2); ALBUMIN/GLOBULIN RATIO 1.38 (1.00-1.93); ALKALINE PHOSPHATASE 116 U/L (45-117); ALT/SGPT 52 U/L (12-78); AMYLASE 45 U/L (25-115); ANION GAP 16 MEQ/L (8-16); AST/SGOT 18 U/L (15-37); BILIRUBIN,DIRECT 0.4 MG/DL (0.0-0.2); BILIRUBIN,TOTAL 1.6 MG/DL (0.2-1.0); BLOOD UREA NITROGEN 11 MG/DL (7-18); CALCIUM LEVEL 9.1 MG/DL (8.5-10.1); CARBON DIOXIDE LEVEL 25 MEQ/L (21-32); CHLORIDE LEVEL 97 MEQ/L (98-107); GLOMERULAR FILTRATION RATE > 60.0 (>60); GLUCOSE, FASTING 107 MG/DL (70-105); POTASSIUM SERUM 3.3 MEQ/L (3.5-5.1); SODIUM LEVEL 138 MEQ/L (136-145); TOTAL PROTEIN 7.6 GM/DL (6.4-8.2)
[2016-08-11] MEDS ORDERED: METOCLOPRAMIDE INJ 10MG/2ML VIAL (J2765) IV ONE (19:00)
[2016-08-11] MEDS ORDERED: GI COCKTAIL 50ML BTL(HYOSCYAMINE/MAALOX/LIDOCAINE VISCOUS)(1:3:1) PO ONE (19:00)
[2016-08-11] MEDS ORDERED: PRIL20CA9 PO (19:11)
[2016-08-11] MEDS ORDERED: ZOFR4TAB3 PO (19:11)
[2016-08-11 19:19] VITALS: BP 141/85
== END 2016-08-11 19:21 | disposition home or self-care (01) ==
LOC: M ED 17:33
DX: K29.00 Acute gastritis without bleeding (principal); E86.0 Dehydration
CPT/HCPCS: 80048; 80076; 81001; 82150; 83690; 85025; 96361; 96374; 96375; 99282; J1200; J1885; J2405; J2765

== ENCOUNTER 2016-10-26 07:03 | Emergency (ER) | payer BC ==
[~2016-10-26] VITALS: Ht 177.8 cm; Wt 109.1 kg
[~2016-10-26 07:03] MED LIST: GAS-80CH PO; PEPT262T2 PO; PRIL20CA9 PO; PROM50TA4 PO; TYLE325C PO; ZOFR4TAB3 PO
[2016-10-26] MEDS ORDERED: SUCR1SS PO (07:30)
[2016-10-26] MEDS ORDERED: GI COCKTAIL 50ML BTL(HYOSCYAMINE/MAALOX/LIDOCAINE VISCOUS)(1:3:1) PO ONE (07:30)
[2016-10-26 07:39] VITALS: BP 150/90
== END 2016-10-26 07:47 | disposition home or self-care (01) ==
LOC: M ED 07:03
DX: R10.13 Epigastric pain (principal); R11.2 Nausea with vomiting, unspecified

== ENCOUNTER → 2017-11-12 | Outpatient (CLI) | payer BC ==
[2017-11-12 16:41] LABS: BASO % 0.1 % (0.0-1.0); HEMATOCRIT 46.5 % (42.0-52.0); HEMOGLOBIN 16.5 g/dl (13.5-17.5); IMMATURE GRANULOCYTE % 0.5 % (0-3.0); LYMPH # 0.6 10^3/uL (1.5-6.5); LYMPH % 5.9 % (24.0-44.0); MEAN CORPUSCULAR HEMOGLOBIN 30.4 pg (27.0-33.0); MEAN CORPUSCULAR HGB CONC 35.5 g/dl (32.0-36.5); MEAN CORPUSCULAR VOLUME 85.8 fl (80.0-96.0); MONO # 0.5 10^3/uL (0.0-0.8); MONO % 4.8 % (0.0-5.0); NEUTROPHILS # 9.4 10^3/uL (1.8-7.7); NEUTROPHILS % 88.7 % (36.0-66.0); PLATELET COUNT, AUTOMATED 294 10^3/uL (150-450); RED BLOOD COUNT 5.42 10^6/uL (4.30-6.10); RED CELL DISTRIBUTION WIDTH 12.7 % (11.5-14.5); WHITE BLOOD COUNT 10.6 10^3/uL (4.0-10.0)
[2017-11-12 16:44] LABS: ALBUMIN 4.4 GM/DL (3.2-5.2); ALBUMIN/GLOBULIN RATIO 1.38 (1.00-1.93); ALKALINE PHOSPHATASE 79 U/L (45-117); ALT/SGPT 25 U/L (12-78); AMYLASE 37 U/L (25-115); ANION GAP 10 MEQ/L (8-16); AST/SGOT 10 U/L (7-37); BILIRUBIN,TOTAL 1.2 MG/DL (0.2-1.0); BLOOD UREA NITROGEN 12 MG/DL (7-18); CARBON DIOXIDE LEVEL 21 MEQ/L (21-32); CHLORIDE LEVEL 109 MEQ/L (98-107); CREATININE FOR GFR 0.88 MG/DL (0.70-1.30); GLOMERULAR FILTRATION RATE > 60.0 (>60); GLUCOSE, FASTING 126 MG/DL (70-100); POTASSIUM SERUM 3.5 MEQ/L (3.5-5.1); SODIUM LEVEL 140 MEQ/L (136-145); TOTAL PROTEIN 7.6 GM/DL (6.4-8.2)
== END ==
LOC: M WUC 10:48
DX: R10.13 Epigastric pain (principal)
CPT/HCPCS: 82150

== ENCOUNTER 2021-12-23 11:01 | Emergency (ER) | payer BC, SELFPAY ==
[~2021-12-23] VITALS: Ht 180.3 cm; Wt 105.5 kg
[~2021-12-23 11:01] MED LIST changes: +CAPS0.022 TOP; +PROM1SUP2 PR; +SUCR1SS PO; +ZOFR4TAB14 PO; -ZOFR4TAB3 PO
[2021-12-23 11:02] VITALS: BP 168/101
[2021-12-23 13:19] LABS: BASO % 0.2 % (0.0-1.0); EOS % 0.1 % (0.0-3.0); HEMATOCRIT 49.6 % (42.0-52.0); LYMPH # 1.3 10^3/uL (1.5-5.0); LYMPH % 10.1 % (24.0-44.0); MEAN CORPUSCULAR HEMOGLOBIN 30.4 pg (27.0-33.0); MEAN CORPUSCULAR HGB CONC 35.5 g/dl (32.0-36.5); MEAN CORPUSCULAR VOLUME 85.8 fl (80.0-96.0); MONO # 1.1 10^3/uL (0.0-0.8); MONO % 8.2 % (2.0-8.0); NEUTROPHILS # 10.4 10^3/uL (1.5-8.5); NEUTROPHILS % 80.9 % (36.0-66.0); PLATELET COUNT, AUTOMATED 309 10^3/uL (150-450); RED BLOOD COUNT 5.78 10^6/uL (4.30-6.10); WHITE BLOOD COUNT 12.9 10^3/uL (4.0-10.0)
[2021-12-23 13:20] LABS: HEMOGLOBIN 17.6 g/dl (13.5-17.5)
[2021-12-23 13:44] LABS: ALBUMIN 4.6 GM/DL (3.2-5.2); ALT/SGPT 56 U/L (12-78); BILIRUBIN,DIRECT 0.2 MG/DL (0.0-0.2); BILIRUBIN,TOTAL 0.8 MG/DL (0.2-1.0); BLOOD UREA NITROGEN 14 MG/DL (7-18); CARBON DIOXIDE LEVEL 25 MEQ/L (21-32); CHLORIDE LEVEL 104 MEQ/L (98-107); CREATININE FOR GFR 0.81 MG/DL (0.70-1.30); GLOMERULAR FILTRATION RATE > 60.0 (>60); GLUCOSE, FASTING 113 MG/DL (70-100); LIPASE 60 U/L (73-393); POTASSIUM SERUM 3.7 MEQ/L (3.5-5.1); SODIUM LEVEL 139 MEQ/L (136-145); TOTAL PROTEIN 8.1 GM/DL (6.4-8.2)
[2021-12-23] MEDS ORDERED: FAMOTIDINE 20MG/2ML VIAL IVP ONE (14:45)
[2021-12-23] MEDS ORDERED: ONDANSETRON 4MG 2ML VIAL IV ONE (14:45)
[2021-12-23] MEDS ORDERED: NS 1,000 ML IV ONE (14:45)
[2021-12-23] MEDS ORDERED: ONDA-83 PO (18:23)
== END 2021-12-23 22:48 | disposition home or self-care (01) ==
LOC: M ED 11:01
DX: K29.70 Gastritis, unspecified, without bleeding (principal); F17.210 Nicotine dependence, cigarettes, uncomplicated; K76.0 Fatty (change of) liver, not elsewhere classified; K57.30 Diverticulosis of large intestine without perforation or abscess without bleeding; Z79.899 Other long term (current) drug therapy
CPT/HCPCS: 74176; 80048; 80076; 81000; 81015; 83690; 85025; 96374; 96375; 99283; J2405

== ENCOUNTER 2022-03-26 11:12 | Emergency (ER) | payer SELFPAY ==
[~2022-03-26] VITALS: Ht 180.3 cm; Wt 107.2 kg
[~2022-03-26 11:12] MED LIST changes: +ONDA-83 PO
[2022-03-26] MEDS ORDERED: NS 1,000 ML IV ONE ×2 (12:45→12:50)
[2022-03-26] MEDS ORDERED: MORPHINE 4 MG/ML 1ML VIAL IV ONE (12:50)
[2022-03-26] MEDS ORDERED: ONDANSETRON 4MG 2ML VIAL IV ONE (12:50)
[2022-03-26 13:34] LABS: BASO # 0.1 10^3/uL (0.0-0.2); BASO % 0.4 % (0.0-1.0); EOS # 0.1 10^3/uL (0.0-0.5); EOS % 0.5 % (0.0-3.0); HEMATOCRIT 50.9 % (42.0-52.0); HEMOGLOBIN 17.8 g/dl (13.5-17.5); LYMPH # 1.7 10^3/uL (1.5-5.0); MEAN CORPUSCULAR HEMOGLOBIN 30.1 pg (27.0-33.0); MEAN CORPUSCULAR VOLUME 86.1 fl (80.0-96.0); MONO # 1.4 10^3/uL (0.0-0.8); MONO % 10.7 % (2.0-8.0); PLATELET COUNT, AUTOMATED 301 10^3/uL (150-450); RED BLOOD COUNT 5.91 10^6/uL (4.30-6.10); WHITE BLOOD COUNT 13.4 10^3/uL (4.0-10.0)
[2022-03-26] MEDS ORDERED: ISOVUE-370 76% 100ML VIAL As Ordered ONE (13:47)
[2022-03-26 14:08] LABS: ALBUMIN 4.6 G/DL (3.2-5.2); BILIRUBIN,DIRECT 0.5 MG/DL (<0.4); BILIRUBIN,TOTAL 1.4 MG/DL (0.3-1.2); TOTAL PROTEIN 7.4 G/DL (5.7-8.2)
[2022-03-26 15:40] VITALS: BP 146/98
[2022-03-26] MEDS ORDERED: METR-265 PO (15:45)
[2022-03-26] MEDS ORDERED: CIPR-249 PO (15:45)
== END 2022-03-26 16:03 | disposition home or self-care (01) ==
LOC: M ED 11:12
DX: K57.32 Diverticulitis of large intestine without perforation or abscess without bleeding (principal); R11.2 Nausea with vomiting, unspecified; F12.10 Cannabis abuse, uncomplicated; K76.0 Fatty (change of) liver, not elsewhere classified; F90.9 Attention-deficit hyperactivity disorder, unspecified type; F41.9 Anxiety disorder, unspecified; F32.9 Major depressive disorder, single episode, unspecified; F17.200 Nicotine dependence, unspecified, uncomplicated
CPT/HCPCS: 74177; 80047; 80076; 83690; 85025; 96361; 96374; 96375; 99284; J2270; J2405

== ENCOUNTER 2023-10-16 10:23 | Emergency (ER) | payer MEDICAID, SELFPAY ==
[~2023-10-16] VITALS: Ht 180.3 cm; Wt 106.4 kg
[~2023-10-16 10:23] MED LIST changes: +CIPR-249 PO; +METR-265 PO
[2023-10-16 11:23] LABS: BASO # 0.1 10^3/uL (0.0-0.2); BASO % 0.6 % (0.0-1.0); EOS # 0.1 10^3/uL (0.0-0.5); HEMATOCRIT 50.1 % (42.0-52.0); HEMOGLOBIN 18.1 g/dl (13.5-17.5); LYMPH # 1.9 10^3/uL (1.5-5.0); LYMPH % 16.2 % (24.0-44.0); MEAN CORPUSCULAR HEMOGLOBIN 30.3 pg (27.0-33.0); MEAN CORPUSCULAR HGB CONC 36.1 g/dl (32.0-36.5); MEAN CORPUSCULAR VOLUME 83.8 fl (80.0-96.0); MONO # 1.3 10^3/uL (0.0-0.8); MONO % 11.1 % (2.0-8.0); NEUTROPHILS # 8.1 10^3/uL (1.5-8.5); NEUTROPHILS % 70.5 % (36.0-66.0); PLATELET COUNT, AUTOMATED 297 10^3/uL (150-450); RED BLOOD COUNT 5.98 10^6/uL (4.30-6.10); WHITE BLOOD COUNT 11.4 10^3/uL (4.0-10.0)
[2023-10-16] MEDS: ONDANSETRON 4MG 2ML VIAL IV ONE (11:47)
[2023-10-16] MEDS: NS 1,000 ML IV ONE (11:47)
[2023-10-16 11:48] LABS: LIPASE 25 U/L (12-53)
[2023-10-16 11:51] LABS: ALBUMIN 4.3 G/DL (3.2-5.2); ALKALINE PHOSPHATASE 105 U/L (46-116); ALT/SGPT 55 U/L (7.0-40); AST/SGOT 20 U/L (<34); BILIRUBIN,DIRECT 0.5 MG/DL (<0.4); BILIRUBIN,TOTAL 1.3 MG/DL (0.3-1.2); BLOOD UREA NITROGEN 15 MG/DL (9-23); CALCIUM LEVEL 9.5 MG/DL (8.5-10.1); CARBON DIOXIDE LEVEL 27 MMOL/L (20-31); CHLORIDE LEVEL 98 MMOL/L (98-107); CREATININE FOR GFR 0.84 MG/DL (0.70-1.30); GLOMERULAR FILTRATION RATE > 60.0 (>60); GLUCOSE, FASTING 108 MG/DL (60-100); POTASSIUM SERUM 3.2 MMOL/L (3.5-5.1); SODIUM LEVEL 136 MMOL/L (136-145); TOTAL PROTEIN 7.2 G/DL (5.7-8.2)
[2023-10-16] MEDS: POTASSIUM CHLORIDE 10MEQ SR TABLET PO ONE (12:24)
[2023-10-16 12:30] LABS: MAGNESIUM LEVEL 2.2 MG/DL (1.8-2.4)
[2023-10-16] MEDS ORDERED: ISOVUE-370 76% 100ML VIAL As Ordered ONE (12:55)
[2023-10-16] MEDS ORDERED: ONDA-282 PO (13:46)
[2023-10-16 13:48] VITALS: BP 141/86; TEMP 98; O2SAT 97
== END 2023-10-16 13:59 | disposition home or self-care (01) ==
LOC: M ED 10:23
DX: R10.9 Unspecified abdominal pain (principal); R11.0 Nausea; F41.9 Anxiety disorder, unspecified; F32.A Depression, unspecified; F90.9 Attention-deficit hyperactivity disorder, unspecified type; Z87.891 Personal history of nicotine dependence; Z79.899 Other long term (current) drug therapy
CPT/HCPCS: 74177; 80048; 80076; 83690; 83735; 85025; 96361; 96374; 99284; J2405; Q9967

== ENCOUNTER 2025-03-09 15:37 | Emergency (ER) | payer MEDICAID, SELFPAY ==
[~2025-03-09] VITALS: Ht 180.3 cm; Wt 101.4 kg
[~2025-03-09 15:37] MED LIST changes: +ONDA-282 PO
[2025-03-09] MEDS: NS (Normal Saline) 0.9% 1,000 ML IV ONE (17:50)
[2025-03-09] MEDS: FAMOTIDINE 20 MG/2 ML VIAL IVP ONE (17:50)
[2025-03-09] MEDS: HALOPERIDOL LACTATE 5 MG/ML VIAL IV ONE (17:51)
[2025-03-09 18:03] LABS: BASO # 0.1 10^3/uL (0.0-0.2); BASO % 0.4 % (0.0-1.0); EOS # 0.0 10^3/uL (0.0-0.5); EOS % 0.1 % (0.0-3.0); LYMPH # 1.1 10^3/uL (1.5-5.0); LYMPH % 7.8 % (24.0-44.0); MONO # 0.7 10^3/uL (0.0-0.8); MONO % 4.7 % (2.0-8.0); NEUTROPHILS # 12.0 10^3/uL (1.5-8.5); NEUTROPHILS % 86.6 % (36.0-66.0); PLATELET COUNT, AUTOMATED 316 10^3/uL (150-450)
[2025-03-09] MEDS ORDERED: ISOVUE-370 76% 100 ML VIAL As Ordered ONE (18:12)
[2025-03-09 18:19] LABS: ALT/SGPT 40 U/L (7.0-40); AST/SGOT 24 U/L (<34); CALCIUM LEVEL 10.4 MG/DL (8.5-10.1); CARBON DIOXIDE LEVEL 20 MMOL/L (20-31); CHLORIDE LEVEL 101 MMOL/L (98-107); CK-MB VALUE MASS < 1.0 NG/ML (<3.6); CPK CREATINE PHOSPHOKINASE 70 U/L (46-171); CREATININE FOR GFR 0.86 MG/DL (0.70-1.30); GLOMERULAR FILTRATION RATE > 90.0 (>60); POTASSIUM SERUM 4.0 MMOL/L (3.5-5.1); SODIUM LEVEL 138 MMOL/L (136-145)
[2025-03-09 19:31] LABS: AMPHETAMINES LEVEL URINE NEGATIVE (NEGATIVE)
[2025-03-09 19:32] LABS: BARBITURATES URINE NEGATIVE (NEGATIVE); BENZODIAZEPINES URINE NEGATIVE (NEGATIVE); COCAINE METABOLITE URINE NEGATIVE (NEGATIVE); METHADONE URINE NEGATIVE (NEGATIVE); OPIATES URINE NEGATIVE (NEGATIVE); PHENCYCLIDINE URINE NEGATIVE (NEGATIVE)
[2025-03-09 19:33] LABS: CANNABINOIDS URINE POSITIVE (NEGATIVE)
[2025-03-09] MEDS ORDERED: ONDA-282 PO (21:08)
[2025-03-09 21:20] VITALS: BP 126/82; TEMP 97.5; O2SAT 97
== END 2025-03-09 21:22 | disposition home or self-care (01) ==
LOC: M ED 15:37
DX: F12.188 Cannabis abuse with other cannabis-induced disorder (principal); R11.10 Vomiting, unspecified; I45.81 Long QT syndrome; F41.9 Anxiety disorder, unspecified; F32.A Depression, unspecified; F42.3 Hoarding disorder; F17.210 Nicotine dependence, cigarettes, uncomplicated; Z79.899 Other long term (current) drug therapy
CPT/HCPCS: 70491; 71046; 74177; 80047; 80048; 80076; 80307; 82550; 82553; 83605; 83690; 84484; 85025; 93005; 96361; 96374; 96375; 99284; J1308; J1630; Q9967